=== PATIENT | male | born 1970 | race Caucasian/White ===

== ENCOUNTER 2022-01-21 12:27 | Emergency (ER) | payer OTHER ==
[~2022-01-21] VITALS: Ht 167.6 cm; Wt 88.5 kg
[2022-01-21] MEDS ORDERED: KETOROLAC TROMETHAMINE 30 MG/ML VIAL IV STA (12:34)
[2022-01-21] MEDS ORDERED: ONDANSETRON HCL INJ 2MG/ML 2ML 2 MG/ML VIAL IV STA (12:34)
[2022-01-21] MEDS ORDERED: SODIUM CHLORIDE 0.9% 1000ML 1,000 ML IV ONE (12:45)
[2022-01-21 12:53] LABS: BASOPHILS % 0.5 % (0.0-1.0); EOSINOPHILS # (AUTO) 0.1 (0.0-0.4); EOSINOPHILS % 1.5 % (0.0-6.0); HEMOGLOBIN 15.9 g/dL (14.0-18.0); LYMPHOCYTES # (AUTO) 1.9 (1.0-3.2); LYMPHOCYTES % 23.5 % (18.0-39.1); MEAN CORPUSCULAR HEMOGLOBIN 31.2 pg (28-32); MEAN CORPUSCULAR HGB CONC 33.8 g/dL (31-35); MEAN CORPUSCULAR VOLUME 92.2 fL (81-99); MONOCYTES # (AUTO) 0.8 (0.2-0.8); MONOCYTES % 9.8 % (4.4-11.3); NEUTROPHILS # (AUTO) 5.1 (2.1-6.9); NEUTROPHILS % 64.3 % (38.7-80.0); PLATELET COUNT 219 x10e3/uL (140-360); RED CELL DISTRIBUTION WIDTH 12.4 % (11.7-14.4)
[2022-01-21 13:02] LABS: COLOR,URINE YELLOW (YELLOW)
[2022-01-21 13:03] LABS: BACTERIA,URINE FEW /HPF; CLARITY,URINE SL CLOUDY (CLEAR); EPITHELIAL CELLS,URINE FEW /LPF; KETONES,URINE NEGATIVE (NEGATIVE); LEUKOCYTE ESTERASE ,URINE NEGATIVE (NEGATIVE); NITRITE,URINE NEGATIVE (NEGATIVE); PROTEIN,URINE DIPSTICK NEGATIVE (NEGATIVE); RBC,URINE >50 /HPF (0-5); URINE UROBILINOGEN 0.2 mg/dL (0.2 - 1); WBC,URINE (MAN) 0-5 /HPF (0-5)
[2022-01-21 13:09] LABS: ALBUMIN 4.1 g/dL (3.5-5.0); ALBUMIN/GLOBULIN RATIO 1.2 (0.8-2.0); CALCIUM 9.3 mg/dL (8.4-10.2); CREATININE, SERUM 1.15 mg/dL (0.72-1.25)
[2022-01-21] MEDS ORDERED: KETOROLAC TROME10 MG PEG (14:16)
[2022-01-21] MEDS ORDERED: FLOMAX0.4 MG PO (14:16)
== END 2022-01-21 15:12 | disposition home or self-care (01) ==
LOC: ER 12:30
DX: M54.50 Low back pain, unspecified (principal); N20.1 Calculus of ureter; R11.0 Nausea
CPT/HCPCS: 36415; 74176; 80053; 81001; 85025; 99284; J1885; J2405